=== PATIENT | female | born 1985 | race Caucasian/White ===

== ENCOUNTER → 2016-08-12 | Outpatient (CLI) | payer OTHER ==
[~2016-08-12] MED LIST: PRENTAB26 PO
[2016-08-12 18:29] LABS: GTGD 50 Grams
[2016-08-14 15:00] LABS: AFP CONCENTRATION 35.8 NG/ML; AFP MULTIPLE OF MEDIAN 0.96; AFPTS GESTATIONAL AGE 16.3 WEEKS; AFPTS INSULIN DEP DIABETIC? NO; AFPTS MATERNAL WT 129 LBS; ALPHA-FETOPROTEIN RACE CAUCASIAN=W; HISTORY OF NTD NO; INHIBIN A 71 PG/ML; INHIBIN A MOM 0.39; REPEAT SAMPLE? NO; hCG MULTIPLE OF MEDIAN 0.71
== END | disposition home or self-care (01) ==
LOC: C.LAB1850 15:48
PROVIDERS: ATTEND Obstetrics & Gynecology
DX: Z34.82 Encounter for supervision of other normal pregnancy, second trimester (principal)

== ENCOUNTER → 2016-11-04 | Outpatient (CLI) | payer OTHER ==
[2016-11-04 14:33] LABS: URINE APPEARANCE CLEAR (CLEAR); URINE BILIRUBIN NEG (NEG); URINE COLOR YELLOW; URINE NITRITE NEG (NEG); URINE SPECIFIC GRAVITY 1.004 (1.000-1.030); UROBILINOGEN NEG (NEG)
[2016-11-04 14:40] LABS: MANUAL MICROSCOPIC REQUIRED? NO; REVIEW REQ? NO
== END | disposition home or self-care (01) ==
LOC: C.LABSPEC 13:49
PROVIDERS: ATTEND Obstetrics & Gynecology
DX: Z34.83 Encounter for supervision of other normal pregnancy, third trimester (principal)

== ENCOUNTER → 2016-11-04 | Outpatient (CLI) | payer OTHER ==
[2016-11-04 12:20] LABS: HEMATOCRIT 36.1 % (37-47)
[2016-11-04 14:10] LABS: GTGD 50 Grams
== END | disposition home or self-care (01) ==
LOC: C.LAB1850 09:43
PROVIDERS: ATTEND Obstetrics & Gynecology
DX: Z34.83 Encounter for supervision of other normal pregnancy, third trimester (principal)

== ENCOUNTER → 2017-01-01 | Outpatient (CLI) | payer OTHER | END | disposition home or self-care (01) | LOC: C.LABSPEC 17:42 | PROVIDERS: ATTEND Obstetrics & Gynecology | DX: Z34.83 Encounter for supervision of other normal pregnancy, third trimester (principal) ==

== ENCOUNTER 2017-02-03 06:45 | Inpatient (IN) | payer OTHER ==
[~2017-02-03] VITALS: Ht 167.6 cm; Wt 69.5 kg
[2017-02-03] MEDS ORDERED: LACTATED RINGER'S 1000ML 1,000 ML IV PRN (07:03)
[2017-02-03 07:27] LABS: HEMATOCRIT 38.5 % (37-47); MEAN CELL VOLUME 92.5 fL (80-100); MEAN CORPUSCULAR HEMOGLOBIN 31.7 pg (25-34); MEAN CORPUSCULAR HGB CONC 34.3 g/dl (32-36); MEAN PLATELET VOLUME 12.2 fL (7.4-10.4); PLATELET COUNT 161 K/uL (130-400); RED BLOOD COUNT 4.16 M/uL (4.2-5.4); WHITE BLOOD COUNT 16.45 K/uL (4.8-10.8)
[2017-02-03] MEDS ORDERED: LACTATED RINGER'S 1000ML 1,000 ML IV SCH (07:30)
[2017-02-03 07:45] VITALS: Ht 167.6 cm; Wt 69.5 kg
[2017-02-03] MEDS ORDERED: OXYTOCIN 30 UNITS/500ML NSS IV ONE (15:53)
--- NOTE | 2017-02-03 16:27 | Vaginal Delivery Summary ---
Vaginal Delivery Summary The patient dilated to complete and pushed to deliver a viable female infant Apgars 8 and 9 via over a small second-degree perineal laceration. Nose and mouth bulb suction at the perineum and shoulders and body delivered with ease. vigorous and crying at . Cord clamped at approximately 60 seconds of life per maternal request. Infant to maternal abdomen. Cord then doubly clamped and cut. Placenta delivered spontaneously and intact, three- vessel cord. Hemostasis achieved with dilute Pitocin and uterine massage. Laceration repaired after 1% local lidocaine anesthesia in the usual fashion with 3-0 Vicryl. Cervix and sulci intact. EBL 300 cc. Mother and baby stable in recovery.
[2017-02-03] MEDS ORDERED: BENZOCAINE 20% AER SPR 82.5 GM CAN EXT PRN (16:30)
[2017-02-03] MEDS ORDERED: ACETAMINOPHEN/CODEINE 300/30MG TAB PO PRN ×2 (16:30)
[2017-02-03] MEDS ORDERED: OXYTOCIN 30 UNITS/500ML NSS IV PRN (16:30)
[2017-02-03] MEDS ORDERED: SUPERCREAM 0.870 % 15GM JAR EXT PRN (16:30)
[2017-02-03] MEDS ORDERED: HYDROCORTISONE ACETATE 25 MG SUPP PR PRN (16:30)
[2017-02-03] MEDS ORDERED: ACETAMINOPHEN 325 MG TAB PO PRN (16:30)
[2017-02-03] MEDS ORDERED: LANOLIN OINT EXT PRN ×2 (16:30)
[2017-02-03] MEDS ORDERED: DIPHTHERIA/TETANUS/PERTUSSIS 0.5 ML SYR/VIAL IM. ONE (16:30)
--- NOTE | 2017-02-03 16:35 | Medical Student: [facility] ---
Medical Student Delivery Note Delivery date: 02/03/17 Procedure: Spontaneous vaginal delivery at 41.2 weeks with second degree laceration. Surgeon: Dr. Bowen Anesthesia: none Estimated blood loss: 50mL Description: Patient is a 31 year old who presented in active labor this morning. She is GBS negative. Blood type O+. She progressed to full dilation and pushed actively for approximately 1 hour. 1 hour after active pushing the vertex was brought to the perineum. She pushed with good effort to deliver a viable female . The mouth and nasopharynx were suctioned. The nuchal cord was clamped and cut after 1 minute delay. The infant was delivered without difficulty and placed on the mother's abdomen for further attention and drying. Bleeding was controlled with fundal massage and dilute IV oxytocin. Second degree laceration was repaired with suture. Mother and infant doing well after delivery. Apgars 8/9.
[2017-02-03] MEDS ORDERED: OXYTOCIN INJ 20 UNITS in LACTATED RINGER'S 1000ML 1,000 ML IV SCH (16:45)
[2017-02-03] MEDS: IBUPROFEN 600 MG TAB PO PRN (17:48)
[2017-02-03 19:30] VITALS: BP 114/65; PULSE 56; TEMP 36.8
[2017-02-03] MEDS: DOCUSATE SODIUM 100 MG CAP PO SCH (20:32)
[2017-02-03 23:00] VITALS: BP 108/69; PULSE 56; TEMP 36.9; O2SAT 96
[2017-02-04 04:10] VITALS: BP 94/63; PULSE 48; TEMP 36.3; O2SAT 98
--- NOTE | 2017-02-04 06:51 | OB/GYN Progress Note ---
BOILER PLANT OPERATOR Progress Note Date of Service Feb 04, 2017. Subjective conversation w/ patient, physical exam, chart review, lab review Ambulation: ambulating normally Voiding: no voiding problems Passing Gas: Yes (No BM yet) Diet Tolerance: Regular Diet Lochia: Small Feeding Type: Breast Feeding Pain: Denies Review of Systems Constitutional: No fever, No chills Respiratory: No cough, No shortness of breath Cardiac: No chest pain Abdomen: No nausea, No vomiting, No diarrhea Female : No dysuria Objective Vital Signs Date Time Temp Pulse Resp B/P (MAP) Pulse Ox O2 Delivery O2 Flow Rate FiO2 02/04/17 04:10 36.3 48 18 94/63 (73) 98 Room Air 02/03/17 23:00 36.9 56 18 108/69 (82) 96 Room Air 02/03/17 23:00 Room Air 02/03/17 19:30 Room Air 02/03/17 19:30 36.8 56 20 114/65 (81) Room Air Physical Exam General Appearance: WELL-APPEARING, WD/WN, NO APPARENT DISTRESS Respiratory/Chest: lungs clear, normal breath sounds Cardiovascular: + bradycardia (regular bradycardia) Abdomen: normal bowel sounds, non tender, soft Fundus: Firm, Relation to Umbilicus (at umbilicus) Extremities: normal range of motion, non-tender, no pedal edema, no calf tenderness Laboratory Results Last 24 Hours Test 02/03/17 07:12 White Blood Count 16.45 K/uL Red Blood Count 4.16 M/uL Hemoglobin 13.2 g/dL Hematocrit 38.5 % Mean Corpuscular Volume 92.5 fL Mean Corpuscular Hemoglobin 31.7 pg Mean Corpuscular Hemoglobin Concent 34.3 g/dl RDW Standard Deviation 42.3 fL RDW Coefficient of Variation 12.5 % Platelet Count 161 K/uL Mean Platelet Volume 12.2 fL Assessment and Plan Post- Day Number: 1 Continue Routine Care: 31yo s/p , now PPD #1. - Blood type O pos. GBS negative. Rubella immune. - Vital signs reviewed and stable. - Pain controlled with motrin. - No leg swelling or tenderness on calf palpation. Encourage ambulation. - Encourage breast feeding. - Hemoglobin 13.2. Bleeding has improved. Continue to monitor clinically. - Continue routine post-vaginal delivery care. - Pt agreed with above plan, all current questions answered. Jefferson Valdez MD, PGY1 Campus Receptionist Physician Supervision Note: I was present with Dr. Valdez during the history and exam. I discussed the case with the resident and agree with the findings and plan as documented in the note. Any exceptions or clarifications are listed here: Patient's fundus at 2 down when I saw her. She is well and wants to go home later today. instructions reviewed. 6wks pp visit reviewed. Documented By: Eva Bowen Resident Tracking Resident Involvement: Resident Care Provided Care Provided: OB Delivery (morning rounds)
--- NOTE | 2017-02-04 07:16 | Medical Student: [facility] ---
Med Student COMPONENT ASSEMBLER Progress Nt Date of Service Feb 04, 2017. Subjective conversation w/ patient Ambulation: ambulating normally Voiding: no voiding problems Passing Gas: Yes Diet Tolerance: Regular Diet Lochia: Small Feeding Type: Breast Feeding Pain: No pain (took 1 advil yesterday) Review of Systems Constitutional: No fever, No chills, No sweats, No weakness Respiratory: No cough, No shortness of breath Cardiac: No chest pain, No edema Abdomen: No pain, No nausea, No vomiting Female : No dysuria, No urinary frequency, No hematuria, No incontinence, No abnormal vaginal bleeding Objective Vital Signs Date Time Temp Pulse Resp B/P (MAP) Pulse Ox O2 Delivery O2 Flow Rate FiO2 02/04/17 04:10 36.3 48 18 94/63 (73) 98 Room Air 02/03/17 23:00 36.9 56 18 108/69 (82) 96 Room Air 02/03/17 23:00 Room Air 02/03/17 19:30 Room Air 02/03/17 19:30 36.8 56 20 114/65 (81) Room Air Physical Exam General Appearance: WELL-APPEARING Laboratory Results Last 24 Hours Test 02/03/17 07:12 White Blood Count 16.45 K/uL Red Blood Count 4.16 M/uL Hemoglobin 13.2 g/dL Hematocrit 38.5 % Mean Corpuscular Volume 92.5 fL Mean Corpuscular Hemoglobin 31.7 pg Mean Corpuscular Hemoglobin Concent 34.3 g/dl RDW Standard Deviation 42.3 fL RDW Coefficient of Variation 12.5 % Platelet Count 161 K/uL Mean Platelet Volume 12.2 fL Assessment and Plan Post- Day Number: 1
--- NOTE | 2017-02-04 07:16 | Discharge Instructions ---
Discharge Instructions Date of Service Feb 04, 2017. Admission Reason for Admission: 41 Weeks Gestation Of , Normal Labor Discharge Discharge Diagnosis / Problem: Recovery from vaginal delivery Discharge Goals Goal(s): Routine recovery after delivery Medications Continue Dispensed Medications: supercream, dermaplast, tucks, lansinoh Activity Recommendations Activity Limitations: per Instructions/Follow-up section . Instructions / Follow-Up Instructions / Follow-Up ACTIVITY RECOMMENDATIONS: * Gradual return to full activity over the next 2-3 weeks. * No lifting - nothing heavier than baby over the next 2-3 weeks. * Do not engage in vigorous exercise, sexual activity or sports until cleared by your physician. * Do not drive or operate any motorized equipment until cleared by your physician. * You may shower/bathe daily. MEDICATIONS: For discomfort or pain, you may use Acetaminophen (Tylenol), Ibuprofen (Advil), or Naproxen (Aleve) following the package directions. For constipation you may use Colace following the package directions. BREAST CARE: If you are not breast feeding: * Wear a supportive bra 24 hours a day for one to two weeks. * Avoid stimulating your breasts and nipples as much as possible during the first few weeks after delivery. * When taking a shower, have the warm water hit your back, not breasts. * When your breasts feel full, apply ice packs. Usually three to four times a day helps ease the discomfort. * Take a mild pain medication (Tylenol / Motrin) when you are uncomfortable. If breast feeding: * Use breast milk to lubricate nipples. Lansinoh cream may be used for sore nipples. You do not need to remove cream prior to breast feeding. If using a different brand of cream, check the label for directions regarding removal of cream prior to nursing. * Wear a supportive bra. * If having problems with breasts or breast feeding, call a field sales consultant or your health care provider. EPISIOTOMY CARE: After delivery, if you have an episiotomy (stitches), the following steps will ease discomfort and aid healing. * For the first 24 hours after delivery, place ice packs next to your episiotomy to help reduce swelling. * After the first 24 hour-period, sitz baths, either portable or in the tub, are suggested. A shower with a shower arm sprayed over the episiotomy may be comforting. * Deb care should be done after each voiding and bowel movement. Squirt warm water from a plastic bottle over the perineum (region of the body between the anus and urinary opening) and pat dry. * Use Dermoplast to ease discomfort. Shake container. [place] directly over the episiotomy. Place a Tucks on a clean sanitary pad next to your episiotomy. SPECIAL CARE INSTRUCTIONS: When you are discharged from the hospital, it is important for you to follow the instructions listed below: * During the first week at home, you should be able to care for yourself and your baby. In addition, the usual light household activities are encouraged. * Limit your activities to the way you feel. Do not try to clean the house or move furniture. Be sensible. * If you actively engage in sports and have done so up until the time of your delivery, you may resume these activities as soon as you feel able. This may take up to one month or even longer. Use good judgment. * Continue to take your vitamins for at least six weeks after the of your baby. * Your diet need not be limited unless you were on a special diet before your delivery. Breast-feeding mothers need around 2500 calories per day and at least 64-80 ounces of fluid per day (8 to 10 glasses). * You should eat foods from the four major food groups. Crash diets or fad diets are to be avoided. Eating lean meats, fresh fruits and vegetables, low-fat dairy products, high fiber foods and a regular exercise program, will help you get back to your pre- weight without putting your health at risk. * Constipation is sometimes a problem after delivery. Take a mild laxative as needed. If breast feeding, Milk of Magnesia is acceptable to use. You may use a suppository or Fleets enema if no episiotomy. * A daily shower or tub bath is suggested. Be sure to thoroughly and gently dry the perineum. * A bloody vaginal discharge will usually continue until around four weeks post . A small amount of bleeding may continue for as long as six weeks. Vaginal discharge changes from the bright red bleeding after delivery to pink then brownish and finally yellowish-pink before becoming white and disappearing. * Bleeding may increase with activity. Your first period may come in 4-8 weeks. If you are breast feeding, your period may be delayed even longer. * [place] (sex) can begin whenever both you and your partner feel comfortable and do not have any form of genital infection. It is recommended that you wait at least six weeks for internal and external healing to occur. If you have questions, please talk to your health care practitioner. A condom should be used to prevent infection and . * Foreplay, gentle intercourse and lubrication is very important the first several times to prevent pain. A water-based lubricant such as K-Y jelly or Astroglide may be used. * If you have RH negative blood and your baby is RH positive, you will receive RHOGAM by injection prior to discharge. The nurse will give you a card to keep with you that has the date and place that you received RHOGAM after delivery. * During your care, you had a Rubella screen done to check for the presence of rubella antibodies in your blood. If your test was negative, you will receive a Rubella vaccine prior to discharge. This vaccine may cause a fever, soreness at the injection site and flu-like symptoms. If these symptoms persist, notify your health care practitioner. is not advised for one month after a Rubella vaccine. * Verbalizes understanding of car seat law as reviewed with patient nursing. * Car Seat hand-out given and reviewed with patient by nursing. * Shaken baby information reviewed with patient by nursing. Call you doctor if: * Heavy bleeding (saturating several pads an hour) or passing clots the size of your fist. * A fever >101 degrees F (38.3 degrees C) on two occasions four hours apart and /or chills. * Unusual pain in the pelvic or vaginal areas. * "Baby Blues" lasting longer than two weeks. If you have any questions or concerns, call your health care practitioner at . FOLLOW UP VISIT: * Please call the office at to schedule a 6 week examination. It is important you keep this appointment. It is important for you to make arrangements for either yearly or twice yearly check-ups thereafter. Current Hospital Diet Patient's current hospital diet: Regular OB Diet Discharge Diet Recommended Diet: Regular OB Diet Pending Studies Studies pending at discharge: no Medical Emergencies . Who to Call and When: Medical Emergencies: If at any time you feel your situation is an emergency, please call 911 immediately. . Non-Emergent Contact Non-Emergency issues call your: Legal Executive . . "Provider Documentation" section prepared by Jefferson Valdez. . VTE Core Measure Inpt VTE Proph given/why not?: Treatment not indicated
[2017-02-04 08:00] VITALS: BP 99/65; PULSE 62; TEMP 36.7
[2017-02-04] MEDS: DOCUSATE SODIUM 100 MG CAP PO SCH (09:04)
[2017-02-04] MEDS: IBUPROFEN 600 MG TAB PO PRN (09:08)
[2017-02-04 12:30] VITALS: BP 104/69; PULSE 68; TEMP 36.5; O2SAT 98
[2017-02-04 15:15] VITALS: BP 114/76; PULSE 62; TEMP 36.5
[2017-02-04 17:30] VITALS: BP_DIAS 76; PULSE 62; TEMP 36.5
== END 2017-02-04 18:00 | disposition home or self-care (01) | DRG 775 ==
LOC: C.OPB 06:45 → C.LD 06:45 → C.OPB 07:05 → C.LD 14:05 → C.OBG 19:40
PROVIDERS: ADMIT Obstetrics & Gynecology; ATTEND Obstetrics & Gynecology
PROC: 0KQM0ZZ Repair Perineum Muscle, Open Approach (ICD-10-PCS; principal; 2017-02-03)
PROC: 10E0XZZ Delivery of Products of Conception, External Approach (ICD-10-PCS; principal; 2017-02-03)
DX: O48.0 Post-term pregnancy (principal); Z37.0 Single live birth; O42.92 Full-term premature rupture of membranes, unspecified as to length of time between rupture and onset of labor; O70.1 Second degree perineal laceration during delivery; O35.2XX0 Maternal care for (suspected) hereditary disease in fetus, not applicable or unspecified; Z3A.41 41 weeks gestation of pregnancy

== ENCOUNTER 2022-01-02 07:43 | Inpatient (IN) ==
[2022-01-02] MEDS ORDERED: LACTATED RINGER'S 1,000 ML IV PRN (07:55)
[2022-01-02] MEDS ORDERED: OXYTOCIN 30 UNITS/500 ML BAG IV PRN ×3 (07:55→22:33)
[2022-01-02 08:18] LABS: Hematocrit (blood only) 34.4 % (37-47); Hemoglobin 11.7 g/dL (12.0-16.0); Mean Corpuscular Hemoglobin 32.1 pg (25-34); Mean Corpuscular Volume 94.2 fL (80-100); Mean Platelet Volume 11.3 fL (7.4-10.4); Platelet Count 194 K/uL (130-400); RDW Coefficient of Variation 13.8 % (11.5-14.5); RDW Standard Deviation 47.5 fL (36.4-46.3); Red Blood Count 3.65 M/uL (4.2-5.4); White Blood Count 11.58 K/uL (4.8-10.8)
--- NOTE | 2022-01-02 09:31 | History & Physical Report ---
Date of Service January 02, 2022 Assessment & Plan (1) Encounter for induction of labor: (2) Post-dates : (3) Gestational hypertension: Plan: admit, labs. plan arom as pt prefers and if no regular ctx by noon, plan pitocin. pt agreeable. fhts categ 1. need to add cmp this am and pt aware of additional blood draw. Admission and Anticipated Discharge Date Admission Date: January 02, 2022 History of Present Illness Chief Complaint: planned induction, postdates and gest htn Primary Care Provider: CHANTEL Adorno 36yo @ 41 0/7 wks génesis presents to L&D with above cc. She had elevated bps in office and came to L&D, elevated bps persist with dx of gest htn. Offered and accepted paulson balloon for ripening last pm. Labs were checked and wnl. Pt denied and cont to deny sx like [place] visual change or ruq pain. She notes balloon fell out a few hours after home. Today dbp in 92. Urine dip neg protein. PNC c/b 1. ama 2. gest htn PNL rh pos, ri, gbs neg OBH: x 2, sab x 1 GYNH: nl paps, no stds Allergies Allergy/AdvReac Type Severity Reaction Status Date / Time amoxicillin Allergy Intermediate ? Verified 01/02/22 08:01 Bactrim Allergy Intermediate ? Verified 02/03/17 07:44 sulfamethoxazole Allergy Intermediate ? Verified 01/02/22 08:01 trimethoprim Allergy Intermediate ? Verified 01/02/22 08:01 Home Medications Medication Instructions Recorded Confirmed Type prenat.vits,ange,olj-wpmj-lxwmc 1 tab PO DAILY 01/25/21 01/02/22 History breast pump #1 ea 11/12/21 12/25/21 Rx Patient History Medical History (Updated 01/02/22 @ 09:30 by Eva Bowen MD, FACOG) Bacterial conjunctivitis Benign mole Blighted ovum Carrier of group B Streptococcus Encounter for observation for suspected exposure to other biological agents ruled out Encounter for wellness examination History of migraine History of varicella Lipoma of flank SAB (spontaneous ) Surgical History History of wisdom tooth extraction Family History Grandmother (Maternal) Myocardial infarction Diabetes Heart disease Other Dyslipidemia Hypertension Stroke Denies family history of Ovarian cancer Prostate cancer Breast cancer Colorectal cancer Social History (Updated 05/22/21 @ 09:54 by Xiao Colbert) Smoking Status: Never smoker Hx Alcohol Use: No Hx Substance Use: No Preferred Language: Kazakh Client Support Professional Required: No Beliefs That Will Affect Care: None marital status: marital status details: Tez (37) [phone] Current Living Situation: Spouse and Family Current Living Situation Comment: lives with spouse and children, 1 dog, 2 cats, spouse to change litter current occupational status: employed current occupation: RN @ [employer] Feels Safe at Home: Yes Safety Concerns: Feels Safe At This Time caffeine: Yes Dental Care, Regularly: Yes Physical Activity Frequency: 3-4 Times per Week Seatbelt Use: always Sunscreen Use: Yes Review of Systems as per Subjective / HPI Physical Exam Constitutional: WD/WN, vitals as above Respiratory: normal respiratory effort, lungs clear to auscultation Cardiovascular: Rate/Rhythm: regular rate and regular rhythm Gastrointestinal (Abdomen): soft gravid nt efw 7-8# Musculoskeletal: no edema nontender calves Neurologic: grossly normal Psychiatric: A+Ox3, euthymic affect Genitourinary: Manual OB Exam: + cervical dilation 3 cm, + cervical effacement 50%, + station (post medium) -2 and + amniotic fluid (AROM) clear OB Exam Monitor Tracing: + external FHT monitor used, + external uterine monitor used (irreg), + category I and + normal FHT variability Results & Data ([facility]) Vital Signs (Past 12 Hours) Vital Signs Temp Pulse Resp BP 01/02/22 08:03 97.9 F 93 H 18 126/92 01/02/22 07:54 93 H 126/92 01/02/22 07:47 88 127/92 Coding Level of Care Code None Diagnoses Encounter for induction of labor Z34.90 Post-dates O48.0 Gestational hypertension O13.9
[2022-01-02 10:41] LABS: Albumin Level 3.4 gm/dl (3.4-5.0); BUN Creatinine Ratio 12.5 (10-20); Bilirubin,Total 0.3 mg/dl (0.2-1.0); Calcium 8.9 mg/dl (8.5-10.1); Creatinine Clr Calc Pharmacy 138.4 ml/min; Potassium 4.1 mmol/L (3.5-5.1); Total Protein 6.6 gm/dl (6.0-8.3)
--- NOTE | 2022-01-02 14:25 | Labor Progress Brief Note ---
Date of Service January 02, 2022 Subjective pt continues to refuse induction with pitocin. i have asked her to accept pit by noon if no labor and no labor then or now and continues to refuse pitocin. says she will decline pitocin as long as "i will let her." I explained i rec pitocin for induction now Assessment & Plan (1) Encounter for induction of labor: (2) Gestational hypertension: (3) Post-dates : Plan: has been arom since earlier this am. has continued to refuse pitocin. aware that i recommend pitocin now. she cannot clearly tell me when she will accept pitocin except to say she will go "as long as i allow her to." I explained to her i don't know what that means because I am recommending pitocin now. She feels stronger ctx when ambulating but admits only felt 2 ctx over last 20-25min. I explained that is not labor and not rec to just sit with membranes ruptured and no labor due to risk of infection. She verbalizes understanding of my recommendations. Fhts categ 1. Admission and Anticipated Discharge Date Admission Date: January 02, 2022 Physical Exam Constitutional: WD/WN, vitals as above Genitourinary: OB Exam Monitor Tracing: + external FHT monitor used, + external uterine monitor used (irreg), + category I and + normal FHT variability [facility] & Data ([facility]) Vital Signs (Past 12 Hours) Vital Signs Temp Pulse Resp BP 01/02/22 11:08 97.5 F L 01/02/22 10:45 97.9 F 01/02/22 09:26 97.9 F 18 01/02/22 08:03 97.9 F 93 H 18 126/92 01/02/22 07:54 93 H 126/92 01/02/22 07:47 88 127/92 01/02/22 07:46 98.4 F 18 Coding Level of Care Code None Diagnoses Encounter for induction of labor Z34.90 Gestational hypertension O13.9 Post-dates O48.0
[2022-01-02] MEDS ORDERED: LIDOCAINE 1% LOCAL 20 ML VIAL ONE (20:13)
--- NOTE | 2022-01-02 21:09 | Delivery Summary ---
Vaginal Delivery Summary Date of Service January 02, 2022 Vaginal Delivery Summary and 2nd Degree LAC The patient dilated to complete and pushed to deliver a viable female infant Apgars 8 and 9 via over 2nd degree perineal laceration. Cephalic delivered rapidly followed by shoulders and body. Loose nuchal x 2 reduced after delivery. Mouth and nose bulb suctioned at perineum. was vigorous and crying at . Cord clamped at 3minutes of life and to maternal abdomen where the cord was then doubly clamped and cut. Placenta delivered spontaneously and intact, three-vessel cord. Hemostasis achieved with dilute pitocin and uterine massage and drainage of the bladder for approximately 300 cc under sterile conditions. Cervix and sulci intact. Laceration repaired in usual fashion with 3-0 vicryl after 1% local lidocaine anesthesia. EBL 300 cc. Mother and baby stable in recovery. [facility] Vaginal Delivery Charge Delivery Type Details: and 2nd Degree LAC
[2022-01-02] MEDS ORDERED: DIPHTHERIA/TETANUS/PERTUSSIS 0.5 ML SYR/VIAL IM ONE (22:33)
[2022-01-02] MEDS ORDERED: HYDROCORTISONE ACETATE 25 MG SUPP PR PRN (22:33)
[2022-01-02] MEDS ORDERED: oxyCODONE/ACETAMINOPHEN 5mg/325mg TAB PO PRN (22:33)
[2022-01-02] MEDS ORDERED: OXYTOCIN 20 UNITS in LACTATED RINGER'S 1,000 ML IV SCH (22:33)
[2022-01-02] MEDS ORDERED: bisacodyL 10 MG SUPP PR PRN (22:33)
[2022-01-02] MEDS ORDERED: ACETAMINOPHEN 325 MG TAB PO PRN (22:33)
[2022-01-02] MEDS ORDERED: BENZOCAINE 20% AER SPR 82.5 GM CAN EXT PRN (22:33)
[2022-01-03] MEDS: IBUPROFEN 600 MG TAB PO PRN ×4 (00:12→21:33)
--- NOTE | 2022-01-03 06:23 | Obstetrical Progress Note ---
Date of Service January 03, 2022 Assessment & Plan (1) care following vaginal delivery: (2) Gestational hypertension: stable routine care. bps are normal this am, if any concern for elevation may need to have one wk bp check. rh pos, ri, breast feeding. Day #:: 1 Subjective Ambulation: ambulating normally Voiding: no voiding problems Diet Tolerance:: regular diet Lochia:: Small Feeding Type:: breast feeding no complaints Physical Exam Constitutional WD/WN, vitals as above Respiratory normal respiratory effort, lungs clear to auscultation Cardiovascular Rate/Rhythm: regular rate and regular rhythm Gastrointestinal (Abdomen) Inspection/Auscultation: abdomen normal to inspection Percussion/Palpation: abdomen soft Fundus firm 2cm down Musculoskeletal nt calves no edema Neurologic grossly normal Psychiatric A+Ox3, euthymic affect Results & Data ([facility]) Vital Signs (Past 12 Hours) Vital Signs Temp Pulse Pulse Resp BP BP Pulse Ox 01/03/22 03:51 97.7 F 74 18 109/61 97 01/03/22 00:00 98.1 F 91 H 16 125/76 95 01/02/22 23:10 18 01/02/22 22:59 93 H 125/66 01/02/22 22:49 84 124/67 01/02/22 22:40 18 01/02/22 22:39 68 131/74 01/02/22 22:29 73 148/82 H 01/02/22 22:19 76 134/73 01/02/22 22:10 18 01/02/22 22:09 80 142/89 H 01/02/22 21:59 64 141/81 H 01/02/22 21:50 18 01/02/22 21:49 72 143/78 H 01/02/22 21:39 83 138/95 01/02/22 21:29 67 137/83 01/02/22 21:25 18 01/02/22 21:19 70 132/95 01/02/22 21:10 18 01/02/22 21:08 80 130/92 01/02/22 20:02 83 142/99 H 01/02/22 19:31 18 01/02/22 19:09 98.4 F 18 01/02/22 19:01 82 143/89 H 01/02/22 18:30 97.5 F L
[2022-01-03] MEDS: DOCUSATE SODIUM 100 MG CAP PO SCH ×2 (08:07→21:34)
[2022-01-03] MEDS: PRENATAL VITAMIN 1 TAB PO SCH (08:07)
[2022-01-03 23:01] LABS: Hemoglobin 11.8 g/dL (12.0-16.0); Mean Corpuscular Hemoglobin 31.6 pg (25-34); Mean Corpuscular Volume 93.6 fL (80-100); Mean Platelet Volume 11.1 fL (7.4-10.4); Platelet Count 221 K/uL (130-400); RDW Coefficient of Variation 13.9 % (11.5-14.5); RDW Standard Deviation 47.8 fL (36.4-46.3); Red Blood Count 3.74 M/uL (4.2-5.4)
[2022-01-03 23:03] LABS: Mean Corpuscular Hgb Conc 33.7 g/dL (32-36)
[2022-01-03] MEDS: LABETALOL HCL 100 MG TAB PO SCH (23:11)
[2022-01-03 23:20] LABS: Albumin Globulin Ratio 1.1 (0.9-2); Albumin Level 3.1 gm/dl (3.4-5.0); BUN Creatinine Ratio 15.1 (10-20); Bilirubin,Total 0.2 mg/dl (0.2-1.0); Creatinine Clr Calc Pharmacy 146.3 ml/min; Est GFR (African American) 141.6 ml/min; Est GFR (Non-African American) 122.2 ml/min; Globulin 2.9 gm/dl (2.5-4.0); Potassium 4.1 mmol/L (3.5-5.1)
[2022-01-03 23:53] LABS: Basophils # (auto) 0.03 K/uL (0-0.2); Basophils % (auto) 0.3 %; Eosinophils # (auto) 0.11 K/uL (0-0.5); Eosinophils % (auto) 0.9 %; Immature Granulocytes # (auto) 0.07 K/uL (0.00-0.02); Immature Granulocytes % (auto) 0.6 %; Lymphocytes # (auto) 3.08 K/uL (1.2-3.4); Lymphocytes % (auto) 25.7 %; Monocytes # (auto) 1.05 K/uL (0.11-0.59); Monocytes % (auto) 8.8 %; Neutrophils # (auto) 7.66 K/uL (1.4-6.5); Neutrophils % (auto) 63.7 %
[2022-01-04] MEDS: LABETALOL HCL 100 MG TAB PO SCH (07:47)
[2022-01-04] MEDS: IBUPROFEN 600 MG TAB PO PRN (07:47)
[2022-01-04] MEDS: PRENATAL VITAMIN 1 TAB PO SCH (07:47)
--- NOTE | 2022-01-04 08:56 | Obstetrical Progress Note ---
Date of Service January 04, 2022 Assessment & Plan (1) care following vaginal delivery: Plan: 36yo PPD 2 s/p at 41 weeks -Continue routine care -Vitals reviewed- HDS, afebrile -GBS neg -Encourage ambulation, regular diet -Pain control with ibuprofen, acetaminophen PRN -Encourage -Hgb 11.8 (6/10), stable (2) Gestational hypertension: Plan: -elevated BP found last night and put on labetalol 100mg po bid -BPs acceptable on current dosing -continue labetalol 100mg po bid -f/u 1wk for BP check Admission and Anticipated Discharge Date Admission Date: January 02, 2022 Supervising Physician Co-Signing Physician Notes Resident Physician Supervision Note: I interviewed and examined the patient. Discussed with Dr. Moses and agree with findings and plan as documented in the note. Any exceptions or clarifications are listed here: Documented By: Katiuska Alexander MD, FACOG Subjective Ambulation: yes Voiding: yes Passing Gas: yes BM: no Diet Tolerance: regular, denies N/V Lochia: small Feeding Type: Current Pain Level(1-10): 0 Review of Systems Review of Systems: Denies fevers/chills. Denies dyspnea, cough. Denies chest pain. Denies dysuria. Denies headache. Denies back pain. Physical Exam Physical Exam: General: Alert, oriented, no acute distress Cardiac: Regular rate and rhythm, normal S1, S2. No murmurs appreciated. Respiratory: Clear to auscultation b/l with good air flow entry, symmetric chest rise and fall. No wheezes or crackles. No increased work of breathing or accessory muscle use Abdomen: Soft, nontender, nondistended. Fundus firm and palpable at 2 cm below umbilicus. No guarding or rebound. Skin: No rashes or lesions Extremities: Warm, dry, well-perfused with capillary refill <2s b/l. No lower ex tremity edema, erythema or swelling. Negative Vince's sign b/l. Results & Data ([facility]) Vital Signs (Past 12 Hours) Vital Signs Temp Pulse Pulse Resp BP Pulse Ox 01/04/22 07:41 36.7 C 82 16 150/93 H 01/04/22 04:45 82 128/88 01/04/22 00:25 112/73 01/03/22 23:11 36.8 C 86 18 141/85 H 97 01/03/22 22:30 162/104 H Resident Activity Tracking Resident Involvement: Resident Care Provided Care Provided: OB Delivery
== END 2022-01-04 11:35 | disposition home or self-care (01) | DRG 807 ==
LOC: 4S1 07:43 → 4E2 23:51